=== PATIENT | female | born 1970 | race Caucasian/White ===

== ENCOUNTER 2021-11-15 13:41 | Outpatient (CLI) | payer SELFPAY ==
--- NOTE | 2021-11-15 14:26 | XR_ITS ---
WS: [id number] Exam: XR lumbar spine 2-3V* [id number] Date/Time of Exam: 11/15/2021 2:26 PM Reason For Exam: M79.10 - Myalgia, unspecified site No acute fracture or dislocation. Mild dextroscoliosis. Disc spaces are preserved. Posterior elements are intact. XR/XR lumbar spine 2-3V* [id number] IMPRESSION: 1. Slight dextroscoliosis otherwise normal lumbar spine study.
--- NOTE | 2021-11-15 14:26 | XR_ITS ---
WS: [id number] Exam: XR ribs RT 2V* [id number] Date/Time of Exam: 11/15/2021 2:26 PM Reason For Exam: M79.10 - Myalgia, unspecified site No sign of acute right rib fracture. The lungs are fully expanded and clear. No pleural or pulmonary reactive changes. Normal cardiomediastinal silhouette. XR/XR ribs RT 2V* [id number] IMPRESSION: 1. No acute right rib fracture or pneumothorax. 2. Unremarkable chest radiograph.
--- NOTE | 2021-11-15 14:26 | XR_ITS ---
WS: [email or web address] Exam: XR hip RT 2-3V wo/w pel* [id number] Date/Time of Exam: 11/15/2021 2:26 PM Reason For Exam: M79.10 - Myalgia, unspecified site Comparison 08/30/2008. No fracture or dislocation. The joint compartments well maintained. Normal soft tissues. Prominent re ctal fecal impaction. XR/XR hip RT 2-3V wo/w pel* [id number] IMPRESSION: 1. Normal right hip. 2. Rectal fecal impaction
--- NOTE | 2021-11-15 14:26 | XR_ITS ---
WS: [id number] Exam: XR cervical spine 3V* [id number] Date/Time of Exam: 11/15/2021 2:26 PM Reason For Exam: M79.10 - Myalgia, unspecified site Comparison 06/03/2017. No acute fracture or dislocation. Mild degenerative anterolisthesis of C4 on C5. Mild facet DJD at al l levels. Straightening and slight reversal of the normal cervical C curve. Normal paraspinal soft ti ssues. The odontoid is intact. Mild spondylosis of C5, C6 and C7. XR/XR cervical spine 3V* [id number] IMPRESSION: 1. No fracture or dislocation. 2. Straightening and slight reversal of the normal cervical C curve. 3. Other minor findings as detailed above.
--- NOTE | 2021-11-15 14:26 | XR_ITS ---
WS: [email or web address] Exam: XR thoracic spine 3V* [id number] Date/Time of Exam: 11/15/2021 2:26 PM Reason For Exam: M79.10 - Myalgia, unspecified site Findings: In the AP projection, the thoracic spine is straight. In the lateral projection, the thoracic curve is well maintained. The intervertebral disc spaces are intact. No fractures or anomalies of the tho racic spine are noted. XR/XR thoracic spine 3V* [id number] IMPRESSION: Negative thoracic spine.
== END 2021-11-15 13:42 | disposition home or self-care (01) ==
LOC: RAD 13:49
PROVIDERS: Visit Provider Nurse Practitioner
DX: M79.10 Myalgia, unspecified site (principal); V89.2XXA Person injured in unspecified motor-vehicle accident, traffic, initial encounter
CPT/HCPCS: 71100; 72040; 72072; 72100; 73502

== ENCOUNTER 2021-12-30 17:25 | Emergency (ER) | payer SELFPAY ==
[2021-12-30 17:32] VITALS: BP 129/80; PULSE 88; RESP 16; TEMP 36.6; O2SAT 99
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
[2021-12-30] MEDS: neomycin-poly-bacitracin oint 0.9 gm Pkt 1 APPLIC TOPICAL (18:35)
[2021-12-30] MEDS: tetanus-dipt-pertussis 0.5 mL SDV IM (18:36)
== END 2021-12-30 18:34 | disposition home or self-care (01) ==
PROVIDERS: Emergency Provider Emergency Medicine
DX: T23.251A Burn of second degree of right palm, initial encounter (principal); X19.XXXA Contact with other heat and hot substances, initial encounter; Z23 Encounter for immunization
CPT/HCPCS: 73130; 90471; 90715; 99283; A6446

== ENCOUNTER → 2022-07-12 09:33 | Outpatient (BNVA) | payer SELFPAY | PROVIDERS: Visit Provider Nurse Practitioner Family | DX: R05.9 Cough, unspecified (principal); J98.8 Other specified respiratory disorders | CPT/HCPCS: 87400; 87426 ==

== ENCOUNTER → 2022-07-31 15:27 | Outpatient (BNVA) | payer SELFPAY | PROVIDERS: Visit Provider Nurse Practitioner Family | DX: J98.8 Other specified respiratory disorders (principal); R05.3 Chronic cough | CPT/HCPCS: 71046 ==

== ENCOUNTER → 2023-09-09 11:41 | Outpatient (BNVA) | payer SELFPAY | PROVIDERS: Visit Provider Registered Nurse Neonatal Intensive Care | DX: J02.9 Acute pharyngitis, unspecified (principal) | CPT/HCPCS: 87880 ==

== ENCOUNTER → 2023-12-08 15:15 | Outpatient (BNVA) | payer MEDICAID, SELFPAY | PROVIDERS: Visit Provider Nurse Practitioner Women's Health | DX: Z01.419 Encounter for gynecological examination (general) (routine) without abnormal findings (principal); Z11.3 Encounter for screening for infections with a predominantly sexual mode of transmission | CPT/HCPCS: 84443; 86592; 86705; 86706; 86709; 86803; 87340; 87491; 87591; 87806 ==

== ENCOUNTER → 2024-07-06 11:09 | Outpatient (BNVA) | payer MEDICAID, SELFPAY | PROVIDERS: PCP Nurse Practitioner; Visit Provider Nurse Practitioner | DX: Z13.6 Encounter for screening for cardiovascular disorders (principal); E55.9 Vitamin D deficiency, unspecified | CPT/HCPCS: 80053; 80061; 82306; 84443; 85025 ==

== ENCOUNTER 2024-07-27 13:19 | Outpatient (CLI) | payer MEDICAID, SELFPAY ==
--- NOTE | 2024-07-27 13:20 | MM_ITS ---
WS: [id number] BILATERAL 3D TOMOSYNTHESIS DIGITAL SCREENING MAMMOGRAPHY WITH CAD CLINICAL INFORMATION: Z12.31 - Encounter for screening mammogram for malignant ... HISTORY: Screening mammogram. No current complaints. COMPARISON: Baseline TECHNIQUE: Bilateral CC and MLO views. FINDINGS: Scattered fibroglandular densities bilaterally. No suspicious focal mass, asymmetry, calcifications, or architectural distortion. No evidence of malignancy. MM/MM scr tomosynthesis [id number] IMPRESSION: DENSITY: There are scattered areas of fibroglandular density. BI-RADS: 1 - Negative. FOLLOW UP: 1 Year Follow-up Recommend return to annual screening mammography.
== END 2024-07-27 13:20 | disposition home or self-care (01) ==
LOC: MOBLMAM 13:23
PROVIDERS: PCP Nurse Practitioner; Visit Provider Nurse Practitioner
DX: Z12.31 Encounter for screening mammogram for malignant neoplasm of breast (principal); R92.323 Mammographic fibroglandular density, bilateral breasts
CPT/HCPCS: 77063; 77067

== ENCOUNTER 2024-08-13 08:41 | Outpatient (CLI) | payer MEDICAID, SELFPAY ==
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
== END 2024-08-13 08:42 | disposition home or self-care (01) ==
PROVIDERS: PCP Nurse Practitioner; Visit Provider Nurse Practitioner Adult Health
DX: J98.4 Other disorders of lung (principal); J84.10 Pulmonary fibrosis, unspecified; R91.8 Other nonspecific abnormal finding of lung field; K59.00 Constipation, unspecified
CPT/HCPCS: 71250